=== PATIENT | male | born 1955 | race African-American/Black ===

== ENCOUNTER → 2016-09-06 | Outpatient (CLI) | payer OTHER ==
--- NOTE | 2016-09-06 14:19 | DI ---
EXAM: CHEST, PA LATERAL COMPARISON: None available. HISTORY: ITS.REASON: DX TESTING . FINDINGS:There is elevation of left hemidiaphragm posteriorly and elevation of the right hemidiaphragm posteriorly.. The cardiomediastinal silhouette is within limits of normal. The pulmonary vascularity appears unremarkable. The lungs are clear. There is no evidence for pleural effusion. There is no evidence for a pneumothorax. No osseous abnormalities are identified. IMPRESSION: 1. Elevation of the posterior diaphragms bilaterally. 2. Otherwise unremarkable exam. LOCATION OF DICTATION: [facility] – [place] .
--- NOTE | 2016-09-07 11:41 | ECHOF ---
ECHOCARDIOGRAM DATE OF PROCEDURE September 06, 2006 This is a two-dimensional echo with spectral Doppler, color-flow and M-mode. Left atrial dimension is normal. Left ventricular end-diastolic dimension is normal. Left ventricular wall thickness is normal. LV systolic function is normal with ejection fraction of 60%. Right atrium is normal. Right ventricle is normal. Aortic root dimension is normal. Mitral valve is morphologically normal with trace of mitral regurgitation. Aortic valve is a trileaflet structure with no stenosis or insufficiency. Tricuspid valve shows mild tricuspid regurgitation with normal estimated pulmonary artery systolic pressure of 32. Pulmonary valve shows trace of pulmonary insufficiency. There is no pericardial effusion. IMPRESSION 1. Normal LV systolic function with ejection fraction of 60%. 2. Mild tricuspid regurgitation with normal estimated pulmonary artery systolic pressure of 32. 3. Trace of pulmonary insufficiency. 4. Trace of mitral regurgitation. MTDD
== END ==
LOC: IMA 13:11
DX: Z02.89 Encounter for other administrative examinations (principal)
CPT/HCPCS: 93306